=== PATIENT | female | born 1990 | race Caucasian/White ===

== ENCOUNTER → 2017-01-14 | Outpatient (CLI) | payer BC ==
[~2017-01-14] MED LIST: FLDR.1T; FLX20C; TRINESSA; [UNRECOGNIZED DRUG - OTHER]
== END ==
LOC: LAB 11:48
PROVIDERS: ATTEND Internal Medicine Endocrinology, Diabetes & Metabolism
DX: E05.90 Thyrotoxicosis, unspecified without thyrotoxic crisis or storm (principal)
CPT/HCPCS: 36415; 84439

== ENCOUNTER → 2018-08-04 | Outpatient (CLI) | payer OTHER ==
--- NOTE | 2018-08-04 13:00 | Diagnostic Imaging Report ---
INDICATION: dating. FINDINGS: There is an intrauterine gestational sac containing a pole. [place]-rump length measurement is approximately 9 mm consistent with seven weeks zero days' gestation. heart rate was recorded at 146 beats per minute. There appears to be a small subchorionic hemorrhage present. Adnexa are unremarkable. IMPRESSION: Single live IUP approximately seven weeks zero days' gestational age. Estimated date of confinement sonographically is 03/23/2019. Note is made of a small subchorionic hemorrhage. Dictated by: Dictated on workstation # [id number]
== END ==
LOC: RAD 09:36
PROVIDERS: ATTEND Family Medicine
DX: Z34.91 Encounter for supervision of normal pregnancy, unspecified, first trimester (principal); Z3A.01 Less than 8 weeks gestation of pregnancy
CPT/HCPCS: 76801; 76817

== ENCOUNTER → 2018-10-21 | Outpatient (CLI) | payer OTHER ==
--- NOTE | 2018-10-21 12:24 | Diagnostic Imaging Report ---
INDICATION: survey. TECHNIQUE: Multiple Real-time grayscale images were obtained over the gravid uterus. COMPARISON: 08/04/2018. FINDINGS: There is a single live fetus in a breech presentation. The heart rate was recorded at 155 BPM. The placenta is anterior and to the maternal right. The amniotic fluid volume is normal. The cervical length is 2.8 cm. The survey demonstrates the kidneys, bladder, and stomach to be unremarkable. The brain is unremarkable. There is a four-chamber heart. There is a three-vessel cord with normal insertion. The spine is limited due to position. MEASUREMENTS: Biometrical measurements are as follows: Biparietal 4.25 cm, age 19 weeks 0 days. Head circumference 15.76 cm, age 18 weeks 5 days. Abdominal circumference 13.17 cm, age 18 weeks 5 days. Femur length 3.10 cm, age 19 weeks 5 days. Sonographic estimate age: 19 weeks 1 days. Sonographic estimated date of delivery: 03/16/2019. Estimated Weight: 272 gm (+/- 40 gm). LMP percentile: 93%. heart rate: 155 beats per minute. number: 1 of 1. IMPRESSION: Single live IUP of approximately 19 weeks gestational age showing normal interval growth when compared to the prior exam. The survey is unremarkable although the spine is somewhat limited in evaluation due to position. Dictated by: Dictated on workstation # [id number]
== END ==
LOC: RAD 09:35
PROVIDERS: ATTEND Family Medicine
DX: Z36.89 Encounter for other specified antenatal screening (principal); Z3A.19 19 weeks gestation of pregnancy
CPT/HCPCS: 76805

== ENCOUNTER 2019-03-23 18:59 | Inpatient (IN) | payer OTHER ==
[~2019-03-23] VITALS: Ht 162 cm; Wt 71.0 kg
[2019-03-23] VITALS (9 sets, daily range): BP systolic 122–138; BP diastolic 63–70
--- NOTE | 2019-03-23 19:00 | NUR ---
SHARON PERDOMO presented to unit via ambulatory from ED, accompanied by with c/o INDUCTION 40wks gest . SHARON PERDOMO weighed, gowned, voided, and to bed. EFHM and TOCO applied, VS taken. SHARON PERDOMO oriented to bed controls, call light, TV, heat, and A/C controls.
[2019-03-23] MEDS ORDERED: LACTATED RINGERS 1,000 ML IV SCH (19:28)
[2019-03-23] MEDS ORDERED: MISOPROSTOL 100 MCG (CYTOTEC) TAB PO NR (19:30)
[2019-03-23] MEDS ORDERED: TERBUTALINE INJ 1 MG/ML (BRETHINE) AMP SC PRN (19:30)
[2019-03-23] MEDS ORDERED: D5 LR IV SOLUTION 1,000 ML IV ONE (19:32)
[2019-03-23] MEDS: D5 LR IV SOLUTION 1,000 ML IV SCH (19:59)
[2019-03-23] MEDS ORDERED: LEVO75TA PO (20:21)
[2019-03-23] MEDS ORDERED: FERR159T2 PO (20:21)
[2019-03-23] MEDS ORDERED: LEVO25TA5 PO (20:21)
[2019-03-23] MEDS ORDERED: PREN-8 PO (20:21)
[2019-03-23 20:33] LABS: BASOPHILS % (AUTO) 0 % (0-10); EOSINOPHILS # (AUTO) 0.2 10^3/uL (0.0-0.3); EOSINOPHILS % (AUTO) 1 % (0-10); HEMATOCRIT 28 % (35-52); HEMOGLOBIN 9.7 G/DL (11.5-16.0); LYMPHOCYTES # (AUTO) 2.9 X 10^3 (1.0-4.0); LYMPHOCYTES % (AUTO) 20 % (12-44); MEAN CORPUSCULAR HEMOGLOBIN 31 PG (25-34); MEAN CORPUSCULAR HGB CONC 35 G/DL (32-36); MEAN CORPUSCULAR VOLUME 90 FL (80-99); MEAN PLATELET VOLUME 11.9 FL (7.4-10.4); MONOCYTES # (AUTO) 1.3 X 10^3 (0.0-1.0); MONOCYTES % (AUTO) 10 % (0-12); NEUTROPHILS # (AUTO) 9.7 X 10^3 (1.8-7.8); NEUTROPHILS % (AUTO) 69 % (42-75); PLATELET COUNT 233 10^3/uL (130-400); RED CELL DISTRIBUTION WIDTH 13.3 % (10.0-14.5); WHITE BLOOD COUNT 14.1 10^3/uL (4.3-11.0)
[2019-03-24] VITALS (37 sets, daily range): BP systolic 107–198; BP diastolic 57–95
[2019-03-24] MEDS: MISOPROSTOL 100 MCG (CYTOTEC) TAB PO SCH ×2 (00:33→04:40)
[2019-03-24] MEDS ORDERED: BUTORPHANOL INJ 2 MG/ML (STADOL) VIAL ONE (01:48)
[2019-03-24] MEDS: BUTORPHANOL INJ 2 MG/ML (STADOL) VIAL IV PRN ×2 (01:52→05:04)
[2019-03-24] MEDS: D5 LR IV SOLUTION 1,000 ML IV SCH (03:07)
[2019-03-24] MEDS ORDERED: SUFENTA 0.6MCG/ML BUPIVA 0.125 100 ML ONE (06:09)
[2019-03-24] MEDS ORDERED: LACTATED RINGERS 1,000 ML IV ONE (06:18)
[2019-03-24] MEDS ORDERED: LIDOCAINE PF 2% 5 ML (XYLOCAINE) VIAL ONE ×4 (06:28→10:50)
[2019-03-24] MEDS ORDERED: BUPIVACAINE 0.25% 30 ML (SENSORCAINE) VIAL ONE (06:28)
[2019-03-24] MEDS ORDERED: fentaNYL INJECTION 100 MCG/2 ML AMP ONE ×2 (06:28→10:41)
[2019-03-24] MEDS ORDERED: LACTATED RINGERS 1,000 ML IV SCH (07:04)
[2019-03-24] MEDS ORDERED: NALOXONE 0.4 MG/ML 1 ML (NARCAN) VIAL IV PRN (07:15)
[2019-03-24] MEDS ORDERED: ONDANSETRON 4 MG/2 ML (SDV) Z0FRAN IV PRN (07:15)
[2019-03-24] MEDS ORDERED: EPIDURAL (SUFENTA 0.6MCG/ML BUPIVA 0.125%) 100 ML BAG EPI PRN (07:15)
[2019-03-24] MEDS ORDERED: diphenhydrAMINE 50 MG/ML INJ (BENADRYL) IV PRN (07:15)
--- NOTE | 2019-03-24 07:15 | NUR ---
Report from [place] [facility].
[2019-03-24] MEDS ORDERED: OXYTOCIN/NORMAL SALINE 500 ML IV SCH (07:21)
--- NOTE | 2019-03-24 07:21 | History & Physical-OB ---
OB - Chief Complaint & HPI Date/Time Date of Admission: Date of Admission: Mar 23, 2019 at 18:59 Date seen by a Provider: Mar 24, 2019 Time Seen by a Provider: 07:15 Chief Complaint/History OB-Reason for Admission/Chief: Induction of Labor Hx : 1 Hx Para: 0 Expected Date of Delivery: Mar 23, 2019 Gestational Age in Weeks: 39 Gestational Age in Days: 6 Admission Nurse Assessment Rev: Yes History of Labs GBS negative Allergies and Home Medications Allergies Coded Allergies: codeine (Verified Allergy, Mild, Vomiting, 03/23/19) Home Medications Levothyroxine Sodium 25 Mcg Tablet, 5 MCG PO BID, (Reported) Patient Home Medication List Home Medication List Reviewed: Yes OB - History Hx of Present Care: Yes Ultrasounds: Normal mid trimester US Obstetrical Complications: None Medical Complications: None Delivery History Hx Blood Disorders: No Patient Past Medical History hypothryoidism treated with levothyroxine Social History/Family History Recent Infectious Disease Expo: No Alcohol Use: Denies Use Recreational Drug Use: No OB - Admission Exam Physical Exam Vitals: Vital Signs 03/24/19 03/24/19 04:30 06:56 Temp 36.5 Pulse 68 Resp 18 B/P (MAP) 145/63 (90) Pulse Ox 97 O2 Delivery Room Air HEENT: Moist Membranes Heart: Rhythm Normal Lungs: Clear Abdomen: Gravid Extremities: Normal Cervical Dilatation: 1cm (on admission) Effacement: 50% Membranes: Intact Heart Rate: 140's Accelerations: Accelerations Present Decelerations: No Decelerations Short Term Variability: Present Cloth Measurer Machine Variability: Average (6-25) Contractions on Admission: >10 Minutes Apart Intensity: Mild Duarte Scoring Tool (Modified) Dilation (cm): 1-2cm (1) Effacement (%): 31-51% (1) Descent/Station: -3 (0) Cervix Consistency: Medium(1) Cervix Position: Middle/Mid-Position (1) Duarte Score: 4 Labs Laboratory Tests Test 03/23/19 20:16 Range/Units White Blood Count 14.1 H 4.3-11.0 10^3/uL Red Blood Count 3.11 L 4.35-5.85 10^6/uL Hemoglobin 9.7 L 11.5-16.0 G/DL Hematocrit 28 L 35-52 % Mean Corpuscular Volume 90 80-99 FL Mean Corpuscular Hemoglobin 31 25-34 PG Mean Corpuscular Hemoglobin Concent 35 32-36 G/DL Red Cell Distribution Width 13.3 10.0-14.5 % Platelet Count 233 130-400 10^3/uL Mean Platelet Volume 11.9 H 7.4-10.4 FL Neutrophils (%) (Auto) 69 42-75 % Lymphocytes (%) (Auto) 20 12-44 % Monocytes (%) (Auto) 10 0-12 % Eosinophils (%) (Auto) 1 0-10 % Basophils (%) (Auto) 0 0-10 % Neutrophils # (Auto) 9.7 H 1.8-7.8 X 10^3 Lymphocytes # (Auto) 2.9 1.0-4.0 X 10^3 Monocytes # (Auto) 1.3 H 0.0-1.0 X 10^3 Eosinophils # (Auto) 0.2 0.0-0.3 10^3/uL Basophils # (Auto) 0.0 0.0-0.1 10^3/uL OB - Assessment/Plan/Diagnosis Assessment Assessment: induction of labor (at term 40 weeks.) Admission Dx 1. IUP at 39w6d gestation 2. Hypothyroid Admission Status: Inpatient Order (span 2 midnights) Reason for Inpatient Admission: Induction of Labor Plan Plan: Induction Induction Method: per Misoprostol Protocol Other Plan -epidural planned CHRIS BLANDON MD Mar 24, 2019 07:21 POS
--- NOTE | 2019-03-24 09:19 | NUR ---
Dr. Boswell notified that fetus was breech on exam.
[2019-03-24] MEDS ORDERED: LACTATED RINGERS 1,000 ML IV PRN (09:27)
[2019-03-24] MEDS ORDERED: CATHETER FLUSH 10 ML SYR IV PRN (09:30)
[2019-03-24] MEDS ORDERED: METOCLOPRAMIDE INJ 10 MG/2 ML (REGLAN) IV ONE (09:30)
[2019-03-24] MEDS ORDERED: FAMOTIDINE 20MG/2ML IV (PEPCID) IV ONE (09:30)
[2019-03-24] MEDS ORDERED: CITRIC ACID/SOB CIT (BICITRA) 30 ML UDC PO ONE (09:30)
[2019-03-24] MEDS ORDERED: FAMOTIDINE 20MG/2ML IV (PEPCID) ONE (09:51)
[2019-03-24] MEDS: CATHETER FLUSH 10 ML SYR IV SCH ×2 (10:04→23:58)
[2019-03-24] MEDS ORDERED: KETAMINE/NaCl 50 MG/5 ML SYRINGE (ED ONLY) ONE (10:12)
--- NOTE | 2019-03-24 10:12 | Consultation ---
History of Present Illness History of Present Illness Patient Consulted On(elisabet/time) 03/24/19 10:05 Date Seen by Provider: Mar 24, 2019 Time Seen by Provider: 09:55 Reason for Visit: Breech History of Present Illness Patient was admitted for induction of labor at term (40 weeks). Had AROM this am and baby had been in variable presentation but was breech. I was asked to perform section. has been uncomplicated. Allergies and Home Medications Allergies Coded Allergies: codeine (Verified Allergy, Mild, Vomiting, 03/23/19) Home Medications Levothyroxine Sodium 25 Mcg Tablet, 5 MCG PO BID, (Reported) Patient Home Medication List Home Medication List Reviewed: Yes Past Osezota-Jgjuhp-Zqzpvh Hx Patient Social History Alcohol Use: Denies Use Recreational Drug Use: No Smoking Status: Never a Smoker Recent Foreign Travel: No Contact w/Someone Who Travel: No Recent Infectious Disease Expo: No Recent Hopitalizations: No Seasonal Allergies Seasonal Allergies: No Past Medical History Surgeries: Yes (T&A) Respiratory: No Cardiac: No Neurological: No Expected Date of Delivery: Mar 23, 2019 Hx : 1 Hx Para: 0 Reproductive Disorders: No Gastrointestinal: No Musculoskeletal: Yes (C/O BACK AND NECK PAIN ALWAYS) Endocrine: Yes HEENT: No Cancer: No Psychosocial: No Integumentary: No Blood Disorders: No Family Medical History Cardiovascular disease 19 FATHER Congenital heart disease Hypertension 19 FATHER Review of Systems-General Constitutional: no symptoms reported Respiratory: no symptoms reported Cardiovascular: no symptoms reported Expected Date of Delivery: Mar 24, 2019 LMP: Mar 24, 2019 Physical Exam-General Problems Physical Exam Vital Signs Vital Signs - First Documented 03/23/19 19:25 Temp 36.7 Pulse 96 Resp 18 B/P (MAP) 138/69 (92) Pulse Ox 97 O2 Delivery Room Air Capillary Refill : Less Than 3 Seconds General Appearance: WD/WN, no apparent distress Respiratory: chest non-tender, lungs clear, normal breath sounds Cardiovascular: regular rate, rhythm Comments well being is reassuring Assessment/Plan Assessment/Plan Admission Diagnosis/Plan 1. at 40 weeks 2. Breech presentation in labor 3. meconium Plan - primary section. Risks include bleeding, infection, injury to bowel, bladder, ureter and baby. She understands these risks. Will give prophylactic ancef and azithromycin (as she has had AROM) Appropriate consents have been signed. Clinical Quality Measures DVT/VTE Risk/Contraindication: Risk Factor Score Per Nursin RFS Level Per Nursing on Admit: 1=Low/No VTE PPX YOSVANY GRAMAJO DO Mar 24, 2019 10:12 POS
[2019-03-24] MEDS ORDERED: BUPIVACAINE 0.5% 30 ML (SENSORCAINE) VIAL ONE (10:21)
[2019-03-24] MEDS ORDERED: AZITHROMYCIN INJECTION 500 MG in NS (IVPB) 250 ML IV NR (10:30)
[2019-03-24] MEDS ORDERED: ceFAZolin 2 GM IV Premixed 50 ML IV NR (10:30)
[2019-03-24] MEDS: OXYTOCIN/NORMAL SALINE 500 ML IV SCH ×2 (10:45→11:00)
[2019-03-24] MEDS ORDERED: HYDROmorphone 2 MG/ML VIAL (DILAUDID) ONE (10:51)
[2019-03-24] MEDS ORDERED: KETOROLAC 30 MG/ML VIAL ONE (10:52)
[2019-03-24] MEDS ORDERED: proPOfol 200 MG/20 ML (DIPRIVAN) VIAL IV ONE (11:12)
[2019-03-24] MEDS: KETOROLAC 30 MG/ML VIAL IVP SCH ×3 (11:17→23:58)
[2019-03-24] MEDS ORDERED: MEASLES,MUMPS,RUBELLA 1 EA INJ SC SCH (11:30)
[2019-03-24] MEDS ORDERED: TETANUS,DIPTH,PERTUSS P/F (BOOSTRIX) 0.5 ML VIAL IM SCH (11:30)
[2019-03-24] MEDS ORDERED: ONDANSETRON 4 MG/2 ML (SDV) Z0FRAN IVP PRN (11:30)
[2019-03-24] MEDS ORDERED: morphine INJ 4 MG/ML 1 ML (VIAL/SYRINGE) IVP PRN (11:30)
[2019-03-24] MEDS ORDERED: IBUPROFEN 600 MG (MOTRIN) TAB PO SCH (12:00)
[2019-03-24] MEDS: ACETAMINOPHEN 500 MG TAB (TYLENOL) PO SCH ×2 (14:06→22:45)
--- NOTE | 2019-03-24 14:10 | NUR ---
Fundus firm U/1 with small rubra lochia noted. Several quarter sized clots noted. Pericare completed and clean pads applied.
--- NOTE | 2019-03-24 15:37 | NUR ---
Morphine 2mg IV given for patient's c/o pain rated 8/10.
--- NOTE | 2019-03-24 15:40 | NUR ---
Sarkar DC'd. Fundus firm U/1 with scant rubra lochia noted. Pericare completed and clean pad and panties applied.
--- NOTE | 2019-03-24 16:40 | NUR ---
Report to Jackie Ag RN.
--- NOTE | 2019-03-24 17:15 | NUR ---
CONTINUING TO DO WELL. S.O. AT BEDSIDE.
--- NOTE | 2019-03-24 18:07 | NUR ---
EATING STORK MEAL. ASLEEP AT BEDSIDE. VISITORS TO ROOM. ROUTINE TORADOL GIVEN.
--- NOTE | 2019-03-24 18:30 | NUR ---
UP TO THE BATHROOM. MOVES WELL. VOIDED 400 CC URINE. PERICARE PERFORMED WITH PAD AND UNDERWEAR APPLIED. BACK TO SIT IN CHAIR PER PT REQUEST. FAMILY AT BEDSIDE.
[2019-03-24] MEDS: DOCUSATE SODIUM 100 MG (COLACE) CAP PO SCH (20:35)
[2019-03-25 00:03] VITALS: BP 120/67
[2019-03-25 03:04] VITALS: BP 119/69
[2019-03-25] MEDS: KETOROLAC 30 MG/ML VIAL IVP SCH ×2 (06:00→11:00)
[2019-03-25] MEDS: ACETAMINOPHEN 500 MG TAB (TYLENOL) PO SCH ×3 (06:01→21:34)
[2019-03-25] MEDS: CATHETER FLUSH 10 ML SYR IV SCH (06:01)
[2019-03-25 06:44] LABS: BASOPHILS % (AUTO) 0 % (0-10); EOSINOPHILS # (AUTO) 0.2 10^3/uL (0.0-0.3); EOSINOPHILS % (AUTO) 1 % (0-10); HEMATOCRIT 23 % (35-52); HEMOGLOBIN 7.7 G/DL (11.5-16.0); LYMPHOCYTES # (AUTO) 3.4 X 10^3 (1.0-4.0); LYMPHOCYTES % (AUTO) 17 % (12-44); MEAN CORPUSCULAR HEMOGLOBIN 31 PG (25-34); MEAN CORPUSCULAR HGB CONC 34 G/DL (32-36); MEAN CORPUSCULAR VOLUME 92 FL (80-99); MEAN PLATELET VOLUME 11.3 FL (7.4-10.4); MONOCYTES # (AUTO) 1.3 X 10^3 (0.0-1.0); MONOCYTES % (AUTO) 7 % (0-12); NEUTROPHILS # (AUTO) 14.9 X 10^3 (1.8-7.8); NEUTROPHILS % (AUTO) 75 % (42-75); PLATELET COUNT 215 10^3/uL (130-400); RED CELL DISTRIBUTION WIDTH 13.7 % (10.0-14.5); WHITE BLOOD COUNT 19.8 10^3/uL (4.3-11.0)
[2019-03-25 09:00] VITALS: BP 103/56
--- NOTE | 2019-03-25 09:00 | NUR ---
A.M. ASSESSMENT COMPLETED.VSS. DOING WELL. SITTING UP IN CHAIR. ENCOURAGED AMBULATION IN THE [facility] TODAY.
--- NOTE | 2019-03-25 09:10 | NUR ---
DR. GRAMAJO IN TO SEE PT.
--- NOTE | 2019-03-25 09:14 | NUR ---
SALINE LOCK D/C'ED. SITE CLEAR.
--- NOTE | 2019-03-25 09:30 | NUR ---
TDAP VACCINE GIVEN IM IN LEFT DELTOID. SITE CLEAR. PT GETTING INTO SHOWER.
[2019-03-25] MEDS: DOCUSATE SODIUM 100 MG (COLACE) CAP PO SCH ×2 (09:31→21:34)
--- NOTE | 2019-03-25 10:33 | Anesthesia-General Post-Op ---
General Patient Condition Mental Status/LOC: Same as Preop Cardiovascular: Satisfactory Nausea/Vomiting: Absent Respiratory: Satisfactory Pain: Controlled Complications: Absent Post Op Complications Complications None Follow Up Care/Instructions Patient Instructions None needed. Anesthesia/Patient Condition Patient Condition Patient is doing well, no complaints, stable vital signs, no apparent adverse anesthesia problems. No complications reported per nursing. SARI WALTERS CRNA Mar 25, 2019 10:33 POS
[2019-03-25] MEDS ORDERED: IBUPROFEN 600 MG (MOTRIN) TAB PO SCH (11:00)
--- NOTE | 2019-03-25 11:55 | NUR ---
AMBULATING DOWNSTAIRS TO EAT LUNCH WITH SPOUSE. INFANT TO NURSERY.
--- NOTE | 2019-03-25 12:50 | Operative Report ---
Operative Report Date of Procedure/Surgery Mar 24, 2019 Surgeon (s) YOSVANY GRAMAJO DO Manager Of Development (s): Hung Boswell MD nurse practitioner physician assistant necessary for retraction of important neurovascular Post-Operative Diagnosis Breech presentation Procedure Performed Primary low transverse cesaren section Description of Procedure Anesthesia Type: EPI (see CS report) Estimated blood loss (mL): see CS report Specimen(s) collected/removed placenta Description of the Procedure see report Findings of the Procedure cristobal breech with right arm extended over hear. Partial accreta, Allergies and Home Medications Allergies Coded Allergies: codeine (Verified Allergy, Mild, Vomiting, 03/23/19) Home Medications Levothyroxine Sodium 25 Mcg Tablet, 5 MCG PO BID, (Reported) Patient Home Medication List Home Medication List Reviewed: Yes YOSVANY GRAMAJO DO Mar 25, 2019 12:50 pm POS
--- NOTE | 2019-03-25 12:52 | Cesarean Section Operative ---
Procedure Procedure Note Pre-operative Diagnosis: Wendy ramires (27 /Para 1 / 0, Gestational Age 40 weeks EGA, breech presentation in labor (ROM) Post-operative Diagnosis: same; partial accreta Procedure: Primary low transverse section Physician: YOSVANY GRAMAJO Clinical Quality Assurance Specialist: Hung Boswell MD; assitant necessary for retraction of important neurovascula structures Estimated blood loss: 500 mL Disposition: stable Findings: Viable female infant, Apgars 8/9, weight 6#15 ounces, placenta adherent to the fundus (see report) consistent with partial accreta, 3vc, normal appearing uterus, tubes, and ovaries. Indications:Wendy ramires (27 /Para 1 / 0,Gestational Age 40 wks presenting for primary section due to breech presentation. Procedure Details: The patient was seen in pre-op and the procedure was discussed with the patient in full, including the risks, benefits, and alternatives. All questions were answered. The patient was taken to the operating room and a time out was performed, verifying patient and procedure. She was induced at 40 weeks and had AROM. Baby had been variable but vertex with AROM. RN noted cristobal breech when she checked cervix because she noticed meconium. I was consulted for primary section. After epidrual anesthesia was dosed by our anesthesia colleagues, the patient was placed in the dorsal supine with leftward tilt for uterine displacement.~ Her abdomen was then prepped and draped in the typical sterile fashion. A Pfannenstiel skin incision was made using a scalpel and carried down through the underlying fascia. The fascia was incised in the midline and tented up using Naty clamps. On both the inferior and superior fascia side the rectus muscle was dissected off bluntly and sharply using Méndez scissors. The peritoneum was identified and entered bluntly in the midline. This was then stretched laterally using manual strength. After entering the abdominal cavity and confirming lack of intraperitoneal adhesions, a large Roni retractor was placed and the lower uterine segment was visualized. A scalpel was utilized to make a low transverse uterine incision. Amniotomy was performed with an Allis clamp with return of clear fluid. The infant's Left hip was noted to be presenting. The breech (cristobal) was grasped and brought to the level of the incision. I then delivered each leg through the incision and then rotated the baby to allow delivery of the left arm across the chest. The right arm was extended above the hear. I then delivered up to the scapulae and was unable to deliver the right arm. I then gently rotated the baby to allow better exposure of the arm and was able to flex the arm across the chest and then delivered this. The head was then flexed forward and the head was delivered via the Rchnlsiz-Mqusaxu-Vmib maneuver. Mouth and nares were suctioned with bulb suction. After the umbilical cord was clamped and cut, the was handed off to the Dr. Boswell. A sample of cord blood was then obtained. The placenta was delivered intact via uterine massage and manual removal. The placenta was found to be very adherent to the fundal area and I had to take this apart in pieces. There appeared to be a partial accreta. I was able to remove the placenta in its entirety. The uterus was cleared of all clots and debris. The uterine incision was closed using 0 Vicryl in a running locked fashion. There was an extension of the left apex of the incision (due to position of the baby) and this was repaired in two layers. A second imbricated layer was placed using 0 Vicryl in a running fashion as well. The bilateral tubes and ovaries appeared normal. The abdominal gutters were cleared of all clots and debris. A final check of the uterine incision showed it to be hemostatic. The peritoneum was closed using 3-0 Vicryl in a running fashion. The fascia was closed with 0 Vicryl in a running fashion. The subcutaneous space was hemostatic, and irrigated. The subcutaneous space was closed with 3-0 Plain in several single interrupted stitches. The skin was then closed using 4-0 Monocryl in a running subcuticular fashion. The skin edges were reapproximated together and were hemostatic. A pressure dressing was applied. All sponge, lap and needle counts were correct at the end of the procedure per nursing. Vitals - Labs Vital Signs - I&O Vital Signs Date Time Temp Pulse Resp B/P (MAP) Pulse Ox O2 Delivery O2 Flow Rate FiO2 03/25/19 03:04 37.2 64 18 119/69 (86) 98 Room Air 03/25/19 00:03 36.3 60 18 120/67 (84) 98 Room Air 10/29/19 20:35 36.6 73 18 115/66 (82) 97 Room Air 03/24/19 15:51 36.8 68 18 111/65 (80) 98 Room Air 03/24/19 12:54 36.6 78 18 107/70 (82) 97 Room Air I & O 03/25/19 07:00 Intake Total 4935 ml Output Total 2500 ml Balance 2435 ml Labs Laboratory Tests 03/25/19 06:30: White Blood Count 19.8H, Red Blood Count 2.50L, Hemoglobin 7.7#L, Hematocrit 23L , Mean Corpuscular Volume 92, Mean Corpuscular Hemoglobin 31, Mean Corpuscular Hemoglobin Concent 34, Red Cell Distribution Width 13.7, Platelet Count 215, Mean Platelet Volume 11.3H, Neutrophils (%) (Auto) 75, Lymphocytes (%) (Auto) 17, Monocytes (%) (Auto) 7, Eosinophils (%) (Auto) 1, Basophils (%) (Auto) 0, Neutrophils # (Auto) 14.9H, Lymphocytes # (Auto) 3.4, Monocytes # (Auto) 1.3H, Eosinophils # (Auto) 0.2, Basophils # (Auto) 0.0 YOSVANY GRAMAJO DO Mar 25, 2019 12:52 pm POS
--- NOTE | 2019-03-25 12:54 | Postpartum Progress Note ---
Post Op Post-operative Day #1 s/p PLTCS. Patient in shower at time of rounds. Per RN she is doing well. No dizziness, no lightheadedness. Subjective: Patient is without complaints. Ambulating, voiding after milner removed. Tolerating a regular diet without nausea or vomiting. Normal lochia. Pain is well controlled with oral pain medications. Passing flatus. breast feeding. Objective: 03/25/19 03:04 Temp 37.2 Pulse 64 Resp 18 B/P (MAP) 119/69 (86) Pulse Ox 98 O2 Delivery Room Air 03/25/19 00:00 Intake Total 400 ml Output Total 500 ml Balance -100 ml Laboratory Tests Test 03/25/19 06:30 Range/Units White Blood Count 19.8 H 4.3-11.0 10^3/uL Red Blood Count 2.50 L 4.35-5.85 10^6/uL Hemoglobin 7.7 #L 11.5-16.0 G/DL Hematocrit 23 L 35-52 % Mean Corpuscular Volume 92 80-99 FL Mean Corpuscular Hemoglobin 31 25-34 PG Mean Corpuscular Hemoglobin Concent 34 32-36 G/DL Red Cell Distribution Width 13.7 10.0-14.5 % Platelet Count 215 130-400 10^3/uL Mean Platelet Volume 11.3 H 7.4-10.4 FL Neutrophils (%) (Auto) 75 42-75 % Lymphocytes (%) (Auto) 17 12-44 % Monocytes (%) (Auto) 7 0-12 % Eosinophils (%) (Auto) 1 0-10 % Basophils (%) (Auto) 0 0-10 % Neutrophils # (Auto) 14.9 H 1.8-7.8 X 10^3 Lymphocytes # (Auto) 3.4 1.0-4.0 X 10^3 Monocytes # (Auto) 1.3 H 0.0-1.0 X 10^3 Eosinophils # (Auto) 0.2 0.0-0.3 10^3/uL Basophils # (Auto) 0.0 0.0-0.1 10^3/uL Physical Exam: General - Alert and oriented, no apparent distress Abdomen - Soft, appropriately tender to palpation, non-distended, fundus firm at umbilicus Incision - clean, dry and intact; no erythema or induration, no drainage Extremities - no edema, negative Kavin's bilaterally Assessment: 1. post-operative day # 1, status post PLTCS. Recovering well, hemodynamically stable 2. Antepartum and Acute blood loss anemia Plan: Routine post-operative care. Encourage breast feeding. Encourage ambulation. VTE prophylaxis: SCDs. Ferrous sulfate supplementation. Plan for discharge tomorrow or Saturday Vitals - Labs Vital Signs - I&O Vital Signs Date Time Temp Pulse Resp B/P (MAP) Pulse Ox O2 Delivery O2 Flow Rate FiO2 03/25/19 03:04 37.2 64 18 119/69 (86) 98 Room Air 03/25/19 00:03 36.3 60 18 120/67 (84) 98 Room Air 03/24/19 20:35 36.6 73 18 115/66 (82) 97 Room Air 03/24/19 15:51 36.8 68 18 111/65 (80) 98 Room Air 03/24/19 12:54 36.6 78 18 107/70 (82) 97 Room Air I & O 03/25/19 07:00 Intake Total 4935 ml Output Total 2500 ml Balance 2435 ml Labs Laboratory Tests 03/25/19 06:30: White Blood Count 19.8H, Red Blood Count 2.50L, Hemoglobin 7.7#L, Hematocrit 23L , Mean Corpuscular Volume 92, Mean Corpuscular Hemoglobin 31, Mean Corpuscular Hemoglobin Concent 34, Red Cell Distribution Width 13.7, Platelet Count 215, Mean Platelet Volume 11.3H, Neutrophils (%) (Auto) 75, Lymphocytes (%) (Auto) 17, Monocytes (%) (Auto) 7, Eosinophils (%) (Auto) 1, Basophils (%) (Auto) 0, Neutrophils # (Auto) 14.9H, Lymphocytes # (Auto) 3.4, Monocytes # (Auto) 1.3H, Eosinophils # (Auto) 0.2, Basophils # (Auto) 0.0 YOSVANY GRAMAJO DO Mar 25, 2019 12:54 pm POS
[2019-03-25 13:00] VITALS: BP 127/58
--- NOTE | 2019-03-25 13:05 | NUR ---
RETURNED TO FLOOR AND RETRIEVED FROM NURSERY.
[2019-03-25] MEDS ORDERED: FERROUS SULF 325 MG (IRON) TAB PO ONE (13:06)
[2019-03-25] MEDS: FERROUS SULF 325 MG (IRON) TAB PO SCH ×2 (13:17→18:28)
--- NOTE | 2019-03-25 14:41 | NUR ---
PARENTS AT BEDSIDE. DENIES PAIN AT THIS TIME.
--- NOTE | 2019-03-25 16:30 | NUR ---
CONTINUES TO DO WELL. CARING FOR INFANT IN ROOM. HAS AMBULATED SEVERAL TIMES THIS SHIFT.
[2019-03-25 18:00] VITALS: BP 127/71
--- NOTE | 2019-03-25 18:00 | NUR ---
VSS. EATING DINNER. VISITORS JUST ARRIVED. DENIES ANY PAIN.
[2019-03-25] MEDS: IBUPROFEN 600 MG (MOTRIN) TAB PO SCH (18:28)
[2019-03-25 21:34] VITALS: BP 125/73
[2019-03-26] MEDS: IBUPROFEN 600 MG (MOTRIN) TAB PO SCH ×3 (00:16→11:46)
[2019-03-26 03:00] VITALS: BP 115/65
[2019-03-26] MEDS: ACETAMINOPHEN 500 MG TAB (TYLENOL) PO SCH (05:47)
[2019-03-26] MEDS: DOCUSATE SODIUM 100 MG (COLACE) CAP PO SCH (07:35)
[2019-03-26] MEDS: FERROUS SULF 325 MG (IRON) TAB PO SCH (07:35)
[2019-03-26 07:40] VITALS: BP 115/72
[2019-03-26] MEDS ORDERED: OXC5T PO (08:39)
[2019-03-26] MEDS ORDERED: ACET-77 PO (08:39)
[2019-03-26] MEDS ORDERED: IBUP-844 PO (08:39)
[2019-03-26] MEDS ORDERED: FERR325T18 PO (08:39)
--- NOTE | 2019-03-26 08:43 | Short Stay Summary ---
Discharge Summary Hospital Course Was the Problem List Reviewed?: Yes Final Diagnosis: Breech in labor, antepartum and acute blood loss a Hospital Course Date of Admission: Mar 23, 2019 at 18:59 Admission Diagnosis : Family Physician/Provider: Chris Blandon MD Date of Discharge: 03/26/19 Discharge Diagnosis: Induction Breech in labor Antepartum anemia Hospital Course: The patient was induced by Dr. Blandon. Please see his notes for this documentation. She had AROM on 03/24/19 and was soon found to be breech. I was consulted for primary section and this was uncomplicated. (done under epidural and had to be redosed during the procedure). She did have a tap block following the C section and then was admitted. Pain management was with toradol and IV morpine and then ibuprofen, tylenol and oxycodone. Her PPD 1 hgb was 7.7, Preoperatively this was 9.7, Her vitals were all within normal and she felt well so no transfusion was indicated. However, she did complain of lower extremity edema. BP was wnl She was discharged home in stable condition on PPD 2. She did have LE edema so we discussed conservative measures for improvement. But she is to call if the swelling increases and/or she is very uncomfortable. 03/25/19 03/26/19 03/26/19 21:34 03:00 07:40 Temp 36.7 36.5 37.1 Pulse 63 67 75 Resp 18 18 16 B/P (MAP) 125/73 (90) 115/65 (82) 115/72 (86) Pulse Ox 98 98 99 O2 Delivery Room Air Room Air Room Air 03/26/19 00:00 Intake Total 1820 ml Output Total 1300 ml Balance 520 ml VS - Last 72 Hours, by Label POS 03/23/19 03/23/19 03/23/19 03/23/19 19:25 20:30 20:43 21:00 Temp 36.7 36.7 Pulse 96 82 96 84 Resp 18 18 18 18 B/P (MAP) 138/69 (92) 126/64 (84) 134/70 (91) Pulse Ox 97 97 O2 Delivery Room Air Room Air Room Air Room Air 03/23/19 03/23/19 03/23/19 03/23/19 21:30 22:00 22:30 23:00 Pulse 82 81 77 68 Resp 18 18 18 18 B/P (MAP) 122/67 (85) 123/68 (86) 124/65 (84) 130/63 (85) O2 Delivery Room Air Room Air Room Air Room Air 03/23/19 03/24/19 03/24/19 03/24/19 23:30 00:00 01:00 01:30 Temp 36.3 Pulse 74 66 73 73 Resp 18 18 18 18 B/P (MAP) 135/65 (88) 129/62 (84) 122/57 (78) 115/57 (76) O2 Delivery Room Air Room Air Room Air Room Air 03/24/19 03/24/19 03/24/19 03/24/19 02:00 02:30 03:00 03:30 Pulse 68 67 67 68 Resp 18 18 18 18 B/P (MAP) 123/59 (80) 114/59 (77) 122/60 (80) 116/65 (82) O2 Delivery Room Air Room Air Room Air Room Air 03/24/19 03/24/19 03/24/19 03/24/19 04:00 04:30 05:00 05:30 Temp 36.5 Pulse 65 63 67 69 Resp 18 18 18 18 B/P (MAP) 122/58 (79) 123/59 (80) 133/66 (88) 114/57 (76) O2 Delivery Room Air Room Air Room Air Room Air 03/24/19 03/24/19 03/24/19 03/24/19 06:00 06:41 06:46 06:51 Pulse 66 69 75 71 Resp 18 18 18 18 B/P (MAP) 178/95 (122) 198/79 (118) 160/69 (99) 162/71 (101) Pulse Ox 98 98 98 O2 Delivery Room Air Room Air Room Air Room Air 03/24/19 03/24/19 03/24/19 03/24/19 06:56 07:15 07:30 07:45 Pulse 68 72 71 64 Resp 18 18 18 18 B/P (MAP) 145/63 (90) 127/67 (87) 128/64 (85) 129/63 (85) Pulse Ox 97 97 98 98 O2 Delivery Room Air Room Air Room Air Room Air 03/24/19 03/24/19 03/24/19 03/24/19 08:00 08:15 08:30 08:45 Temp 36.3 Pulse 71 68 69 60 Resp 18 18 18 18 B/P (MAP) 122/70 (87) 119/66 (83) 131/71 (91) 125/60 (81) Pulse Ox 96 98 97 96 O2 Delivery Room Air Room Air Room Air Room Air 03/24/19 03/24/19 03/24/19 03/24/19 09:00 09:15 09:30 09:45 Pulse 80 66 72 61 Resp 18 18 18 18 B/P (MAP) 132/74 (93) 128/59 (82) 135/76 (95) 137/65 (89) Pulse Ox 99 98 98 99 O2 Delivery Room Air Room Air Room Air Room Air 03/24/19 03/24/19 03/24/19 03/24/19 10:00 10:15 11:26 11:26 Temp 36.5 36.3 Pulse 66 84 Resp 18 18 20 B/P (MAP) 137/69 (91) 124/68 (86) 139/73 (95) Pulse Ox 99 O2 Delivery Room Air Room Air Room Air Room Air 03/24/19 03/24/19 03/24/19 03/24/19 11:30 11:30 11:45 11:45 Temp 36.4 36.4 Resp 20 20 B/P (MAP) 149/88 (108) 144/75 (98) Pulse Ox 98 98 O2 Delivery Room Air Room Air Room Air Room Air 03/24/19 03/24/19 03/24/19 03/24/19 12:00 12:00 12:15 12:15 Temp 36.6 36.8 Resp 20 20 B/P (MAP) 130/72 (91) 131/78 (95) Pulse Ox 99 99 O2 Delivery Room Air Room Air Room Air Room Air 03/24/19 03/24/19 03/24/19 03/25/19 12:54 15:51 20:35 00:03 Temp 36.6 36.8 36.6 36.3 Pulse 78 68 73 60 Resp 18 18 18 18 B/P (MAP) 107/70 (82) 111/65 (80) 115/66 (82) 120/67 (84) Pulse Ox 97 98 97 98 O2 Delivery Room Air Room Air Room Air Room Air 03/25/19 03/25/19 03/25/19 03/25/19 03:04 09:00 13:00 18:00 Temp 37.2 36.4 36.4 37.1 Pulse 64 67 68 78 Resp 18 16 16 18 B/P (MAP) 119/69 (86) 103/56 (72) 127/58 (81) 127/71 (89) Pulse Ox 98 98 99 98 O2 Delivery Room Air Room Air Room Air Room Air 03/25/19 03/26/19 03/26/19 21:34 03:00 07:40 Temp 36.7 36.5 37.1 Pulse 63 67 75 Resp 18 18 16 B/P (MAP) 125/73 (90) 115/65 (82) 115/72 (86) Pulse Ox 98 98 99 O2 Delivery Room Air Room Air Room Air Labs and Pending Lab Test: Laboratory Tests Test 03/23/19 20:16 03/25/19 06:30 Range/Units White Blood Count 14.1 H 19.8 H 4.3-11.0 10^3/uL Red Blood Count 3.11 L 2.50 L 4.35-5.85 10^6/uL Hemoglobin 9.7 L 7.7 #L 11.5-16.0 G/DL Hematocrit 28 L 23 L 35-52 % Mean Corpuscular Volume 90 92 80-99 FL Mean Corpuscular Hemoglobin 31 31 25-34 PG Mean Corpuscular Hemoglobin Concent 35 34 32-36 G/DL Red Cell Distribution Width 13.3 13.7 10.0-14.5 % Platelet Count 233 215 130-400 10^3/uL Mean Platelet Volume 11.9 H 11.3 H 7.4-10.4 FL Neutrophils (%) (Auto) 69 75 42-75 % Lymphocytes (%) (Auto) 20 17 12-44 % Monocytes (%) (Auto) 10 7 0-12 % Eosinophils (%) (Auto) 1 1 0-10 % Basophils (%) (Auto) 0 0 0-10 % Neutrophils # (Auto) 9.7 H 14.9 H 1.8-7.8 X 10^3 Lymphocytes # (Auto) 2.9 3.4 1.0-4.0 X 10^3 Monocytes # (Auto) 1.3 H 1.3 H 0.0-1.0 X 10^3 Eosinophils # (Auto) 0.2 0.2 0.0-0.3 10^3/uL Basophils # (Auto) 0.0 0.0 0.0-0.1 10^3/uL Home Meds Active Oxyir Tablet (Oxycodone HCl) 5 Mg Tab 5 Mg PO Q4HR PRN Acetaminophen 500 Mg Tablet 1,000 Mg PO Q8HR Ibu (Ibuprofen) 600 Mg Tablet 600 Mg PO Q6HR Ferrous Sulfate 325 Mg Tablet 325 Mg PO BID WITH MEALS Reported Levothyroxine Sodium 25 Mcg Tablet 5 Mcg PO BID Synthroid (Levothyroxine Sodium) 75 Mcg Tablet 75 Mcg PO Formula ( Vit W-Ca,Fe,FA(<1 mg)) 1 Each Tablet 1 Each PO Iron (Ferrous Sulfate, Dried) 159 Mg Tablet.er 159 Mg PO Assessment/Pt Instructions Routine post operative course DC home Follow up with me in 1 week for incision check and with Dr. Blandon in 6 weeks Discharge Instructions Discharge Diet: No Restrictions Activity as Tolerated: Yes (no lifting over 25 lbs; no driving for 1 week, nothing in the vagina fo 6 weeks) Discharge Physical Examination General Appearance: Alert HEENT: Atraumatic Respiratory: Clear to Auscultation, Normal Air Movement Cardiovascular: Regular Rate, Normal S1, Normal S2, Other (inc c/d/i) Abdominal: Normal Bowel Sounds Extremities: Other (2+ pitting edema) Allergies: Coded Allergies: codeine (Verified Allergy, Mild, Vomiting, 03/23/19) Copy Copies To 1: CHRIS BLANDON MD Discharge Summary Date of Admission Mar 23, 2019 at 18:59 Date of Discharge Discharge Date: Mar 26, 2019 Admission Diagnosis Induction at 40 weeks antepartum anemima Consults/Procedures Consulations Dr. Gramajo for section Procedures Primary section Discharge Diagnosis Breech Labor actue blood loss anemia Clinical Quality Measures DVT/VTE Risk/Contraindication: Risk Factor Score Per Nursin RFS Level Per Nursing on Admit: 1=Low/No VTE PPX YOSVANY GRAMAJO DO Mar 26, 2019 8:43 am POS
[2019-03-26 11:29] VITALS: BP 115/72
--- NOTE | 2019-03-26 11:55 | NUR ---
PP home instructions given with pt verbalized understanding. To exit via Maddie Gomes RN and .
== END 2019-03-26 11:55 | disposition home or self-care (01) | DRG 788 ==
LOC: LDRP 18:59
PROVIDERS: ADMIT Family Medicine; ATTEND Family Medicine
PROC: 3E0DXGC Introduction of Other Therapeutic Substance into Mouth and Pharynx, External Approach (ICD-10-PCS; 2019-03-24)
PROC: 10D00Z1 Extraction of Products of Conception, Low, Open Approach (ICD-10-PCS; principal; 2019-03-25)
DX: O99.284 Endocrine, nutritional and metabolic diseases complicating childbirth (principal); O32.1XX0 Maternal care for breech presentation, not applicable or unspecified; O43.213 Placenta accreta, third trimester; O77.0 Labor and delivery complicated by meconium in amniotic fluid; E03.9 Hypothyroidism, unspecified; Z3A.39 39 weeks gestation of pregnancy; Z37.0 Single live birth; Z88.5 Allergy status to narcotic agent; Z23 Encounter for immunization
CPT/HCPCS: 36415; 85025; 86850; 86900; 86901; 88307; 90715; 94664